=== PATIENT | male | born 1930 | race Caucasian/White ===

== ENCOUNTER 2019-06-17 08:30 | Emergency (ER) | payer MEDICARE ==
[~2019-06-17] VITALS: Ht 177.8 cm; Wt 68.0 kg
[~2019-06-17 08:30] MED LIST: ALPR.5 PO; Augmentin 875-1 EACH PO; BUPR150ER PO; BUPR150T2 PO; CALCAVITD PO; CEPH500 PO; GLUCHON PO; HYDACE5 PO; MULVITMINF PO; Norco 5-325 Ta1 EACH PO; ONDA4ODT MM; Percocet 5-3251 EACH PO; SERT50 PO; TAMS.4ER PO
[2019-06-17] MEDS ORDERED: HYDR1TAB94 PO (10:23)
== END 2019-06-17 11:11 | disposition home or self-care (01) ==
LOC: ER 08:30
DX: M54.2 Cervicalgia (principal); G89.29 Other chronic pain; Z79.899 Other long term (current) drug therapy
CPT/HCPCS: 72040; 96374; 99283-25; A9270-GY; J3010

== ENCOUNTER 2020-02-01 18:00 | Emergency (ER) | payer MEDICARE ==
[~2020-02-01] VITALS: Ht 177.8 cm; Wt 72.6 kg
[~2020-02-01 18:00] MED LIST changes: +HYDR1TAB94 PO
[2020-02-01 19:35] LABS: Calcium, Ionized (POC) 1.16 mmol/L (1.10-1.46); Chloride (POC) 109 mmol/L (98-108); Creatinine (POC) 1.1 mg/dL (0.8-1.3); Glucose (ISTAT POC) 103 mg/dL (70-99); Hemoglobin (POC) 14.3 g/dL (13.5-17.5); Potassium (POC) 4.4 mmol/L (3.5-5.5); Sodium (POC) 139 mmol/L (135-148); Total CO2 (POC) 19 mmol/L (21-32)
== END 2020-02-01 20:59 | disposition home or self-care (01) ==
LOC: ER 18:00
PROVIDERS: Emergency Medicine
DX: S01.111A Laceration without foreign body of right eyelid and periocular area, initial encounter (principal); E87.8 Other disorders of electrolyte and fluid balance, not elsewhere classified; Z79.899 Other long term (current) drug therapy; Z87.891 Personal history of nicotine dependence; W01.0XXA Fall on same level from slipping, tripping and stumbling without subsequent striking against object, initial encounter
CPT/HCPCS: 70450; 80047; 85014; 93005; 93010; 99284-25

== ENCOUNTER 2020-09-27 01:18 | Emergency (ER) | payer MEDICARE ==
[~2020-09-27] VITALS: Ht 177.8 cm; Wt 68.0 kg
[2020-09-27] MEDS ORDERED: CEPH500 PO (03:15)
== END 2020-09-27 03:41 | disposition home or self-care (01) ==
LOC: ER 01:18
DX: S01.01XA Laceration without foreign body of scalp, initial encounter (principal); Z79.899 Other long term (current) drug therapy; Z87.891 Personal history of nicotine dependence; W01.0XXA Fall on same level from slipping, tripping and stumbling without subsequent striking against object, initial encounter
CPT/HCPCS: 12002; 70450; 72125; 96374-59; 99284-25; J3010; L0160

== ENCOUNTER 2020-10-04 22:54 | Emergency (ER) | payer MEDICARE ==
[~2020-10-04] VITALS: Ht 175.3 cm; Wt 69.0 kg
== END 2020-10-05 01:54 | disposition home or self-care (01) ==
LOC: ER 22:54
DX: S12.110A Anterior displaced Type II dens fracture, initial encounter for closed fracture (principal); S01.01XA Laceration without foreign body of scalp, initial encounter; N40.0 Benign prostatic hyperplasia without lower urinary tract symptoms; Z91.81 History of falling; Z79.899 Other long term (current) drug therapy; Z87.891 Personal history of nicotine dependence; W06.XXXA Fall from bed, initial encounter
CPT/HCPCS: 12004; 70450; 72125; 99284-25

== ENCOUNTER 2021-02-07 13:06 | Emergency (ER) | payer MEDICARE ==
[~2021-02-07] VITALS: Ht 175.3 cm; Wt 68.0 kg
[2021-02-07 13:37] LABS: BASOPHILS ABSOLUTE AUTO 0.04 K/mm3 (0.00-0.23); BASOPHILS PERCENT AUTO 1 % (0-2); EOSINOPHILS ABSOLUTE AUTO 0.13 K/mm3 (0.00-0.68); EOSINOPHILS PERCENT AUTO 2 % (0-6); Hemoglobin 10.6 g/dL (13.5-17.5); IMMATURE GRAN ABSOLUTE AUTO 0.05 K/mm3 (0.00-0.10); IMMATURE GRAN PERCENT AUTO 1 % (0-1); LYMPHOCYTES ABSOLUTE AUTO 1.13 K/mm3 (0.84-5.20); LYMPHOCYTES PERCENT AUTO 14 % (21-46); MONOCYTES ABSOLUTE AUTO 0.81 K/mm3 (0.16-1.47); MONOCYTES PERCENT AUTO 10 % (4-13); Mean Corpuscular HGB Conc 33.1 g/dL (31.5-36.5); Mean Corpuscular Volume 85 fL (80-100); Mean Platelet Volume 9.2 fL (9.1-12.4); NEUTROPHILS PERCENT AUTO 73 % (41-73); Platelet Count 245 K/mm3 (150-400); RDW Standard Deviation 46.1 fL (35.1-46.3); Red Blood Cell Count 3.78 M/mm3 (4.30-5.90); White Blood Cell Count 8.06 K/mm3 (4.00-11.30)
[2021-02-07 13:57] LABS: Alanine Aminotransfer (ALT/SGP 16 U/L (12-78); Albumin, Blood 2.5 g/dL (3.4-5.0); Albumin/Globulin Ratio 0.6 (0.8-1.8); Alk Phos 137 U/L (50-136); Anion Gap 6 mmol/L (6-16); Aspartate Aminotrans (AST/SGOT 30 U/L (12-37); Bilirubin, Total 0.5 mg/dL (0.1-1.0); Blood Urea Nitrogen 21 mg/dL (8-24); Bun/Creatinine Ratio 23.8 (12.0-20.0); CO2, Blood 25 mmol/L (21-32); Calcium, Blood 8.2 mg/dL (8.5-10.1); Chloride, Blood 105 mmol/L (98-108); Creatinine, Blood 0.88 mg/dL (0.60-1.20); Globulin, Blood 3.9 g/dL (2.2-4.0); Glomerular Filtration Rate >60 (60-); Glucose, Blood 222 mg/dL (70-99); Potassium, Blood 4.5 mmol/L (3.5-5.5); Sodium, Blood 136 mmol/L (136-145); Total Protein, Blood 6.4 g/dL (6.4-8.2); Troponin I 0.035 ng/mL (0.000-0.040)
== END 2021-02-07 18:48 | disposition home or self-care (01) ==
LOC: ER 13:06
PROVIDERS: Emergency Medicine
DX: R07.89 Other chest pain (principal); Z79.899 Other long term (current) drug therapy; Z87.891 Personal history of nicotine dependence
CPT/HCPCS: 71045; 80053; 83880; 84484; 85025; 93005; 93010; 99285-25; A9270

== ENCOUNTER → 2021-02-25 | Outpatient (CLI) | payer MEDICARE ==
[~2021-02-25] MED LIST changes: +Acetaminophen325 M1 PO; +DOCU100 PO; +FINA5 PO; +FLUC100 PO; +LEVOFLOXACIN750 MG PO; +MIRALAX17 GM PO; +SENN187 PO; +SERT25 PO; +TAMSULOSIN HCL0.4 M1 PO; +VISBIOME 112.51 EACH PO; +Veetids 500500 MG PO
[2021-02-25 11:39] LABS: Appearance, Urine Cloudy (Clear); Bilirubin, Urine Neg (Neg); Blood, Urine 4+ (Neg); Color, Urine Yellow (P-Yellow); Glucose Qualitative, Urine Neg (Neg); Ketones, Urine Neg (Neg); Leukocyte Esterase, Urine 3+ (Neg); Nitrite, Urine Neg (Neg); Protein, Urine 2+ (Neg); Urobilinogen, Urine NORM (Normal)
[2021-02-25 11:52] LABS: White Blood Cells, Urine TNTC /hpf (0-5)
[2021-02-25 11:53] LABS: Bacteria Many /hpf; Squamous Epithelial Cells Not Seen /hpf (Few); Triple Phosphate Crystals Many /hpf
== END | disposition home or self-care (01) ==
LOC: LAB 09:00 → LAB SHORT 09:00
PROVIDERS: Legal Medicine
DX: N39.0 Urinary tract infection, site not specified (principal); N40.1 Benign prostatic hyperplasia with lower urinary tract symptoms; R32 Unspecified urinary incontinence; Z46.6 Encounter for fitting and adjustment of urinary device
CPT/HCPCS: 81001; 87070; 87077; 87086; 87186; 87205

== ENCOUNTER 2021-03-07 17:26 | Emergency (ER) | payer MEDICARE ==
[~2021-03-07] VITALS: Ht 172.7 cm; Wt 68.0 kg
[~2021-03-07 17:26] MED LIST changes: -Acetaminophen325 M1 PO; -DOCU100 PO; -FINA5 PO; -FLUC100 PO; -LEVOFLOXACIN750 MG PO; -MIRALAX17 GM PO; -SENN187 PO; -SERT25 PO; -TAMSULOSIN HCL0.4 M1 PO; -VISBIOME 112.51 EACH PO; -Veetids 500500 MG PO
[2021-03-07] MEDS ORDERED: Veetids 500500 MG PO (20:16)
[2021-03-07 20:30] LABS: Appearance, Urine Cloudy (Clear); Bilirubin, Urine Neg (Neg); Blood, Urine 5+ (Neg); Color, Urine Amber (P-Yellow); Glucose Qualitative, Urine Neg (Neg); Ketones, Urine Neg (Neg); Leukocyte Esterase, Urine 2+ (Neg); Nitrite, Urine Neg (Neg); Protein, Urine 3+ (Neg); Source, Urine Clean Catch; Urobilinogen, Urine NORM (Normal)
[2021-03-07 20:32] LABS: Bacteria Few /hpf; Red Blood Cells, Urine TNTC /hpf (0-2); Squamous Epithelial Cells Rare /hpf (Few); White Blood Cells, Urine 50-100 /hpf (0-5); Yeast/Fungi Urine Many /hpf
[2021-03-07] MEDS ORDERED: SERT25 PO (20:44)
== END 2021-03-07 20:58 | disposition home or self-care (01) ==
LOC: ER 17:26
PROVIDERS: Physician Assistant
DX: N39.0 Urinary tract infection, site not specified (principal); Z79.899 Other long term (current) drug therapy; Z87.891 Personal history of nicotine dependence
CPT/HCPCS: 51700; 51702; 81001; 87086; 87106; 99283-25; A9270

== ENCOUNTER 2021-03-15 18:12 | Emergency (ER) | payer MEDICARE ==
[~2021-03-15] VITALS: Ht 177.8 cm; Wt 68.0 kg
[~2021-03-15 18:12] MED LIST changes: +SERT25 PO; +Veetids 500500 MG PO
[2021-03-15 19:51] LABS: Source, Urine Catheter
[2021-03-15 19:55] LABS: Appearance, Urine Hazy (Clear); Bilirubin, Urine Neg (Neg); Blood, Urine 5+ (Neg); Color, Urine Yellow (P-Yellow); Glucose Qualitative, Urine Neg (Neg); Ketones, Urine Neg (Neg); Leukocyte Esterase, Urine 3+ (Neg); Nitrite, Urine Neg (Neg); Protein, Urine 4+ (Neg); Urobilinogen, Urine 1+ (Normal); pH, Urine 6.5 (5.0-8.0)
[2021-03-15 20:01] LABS: BASOPHILS ABSOLUTE AUTO 0.03 K/mm3 (0.00-0.23); BASOPHILS PERCENT AUTO 0 % (0-2); EOSINOPHILS ABSOLUTE AUTO 0.24 K/mm3 (0.00-0.68); EOSINOPHILS PERCENT AUTO 3 % (0-6); Hematocrit 36.3 % (37.0-53.0); Hemoglobin 11.6 g/dL (13.5-17.5); IMMATURE GRAN ABSOLUTE AUTO 0.04 K/mm3 (0.00-0.10); IMMATURE GRAN PERCENT AUTO 1 % (0-1); LYMPHOCYTES ABSOLUTE AUTO 1.16 K/mm3 (0.84-5.20); LYMPHOCYTES PERCENT AUTO 17 % (21-46); MONOCYTES ABSOLUTE AUTO 0.76 K/mm3 (0.16-1.47); MONOCYTES PERCENT AUTO 11 % (4-13); Mean Corpuscular HGB 27.8 pg (26.0-34.0); Mean Corpuscular Volume 87 fL (80-100); Mean Platelet Volume 8.6 fL (9.1-12.4); NEUTROPHILS ABSOLUTE AUTO 4.82 K/mm3 (1.96-9.15); NEUTROPHILS PERCENT AUTO 68 % (41-73); Platelet Count 257 K/mm3 (150-400); RDW Standard Deviation 53.9 fL (35.1-46.3); Red Blood Cell Count 4.18 M/mm3 (4.30-5.90); White Blood Cell Count 7.05 K/mm3 (4.00-11.30)
[2021-03-15 20:09] LABS: Bacteria Mod /hpf; Red Blood Cells, Urine TNTC /hpf (0-2); Squamous Epithelial Cells Few /hpf (Few); White Blood Cells, Urine 50-100 /hpf (0-5)
[2021-03-15 20:10] LABS: Alanine Aminotransfer (ALT/SGP 15 U/L (12-78); Albumin, Blood 2.8 g/dL (3.4-5.0); Albumin/Globulin Ratio 0.7 (0.8-1.8); Alk Phos 126 U/L (50-136); Anion Gap 7 mmol/L (6-16); Aspartate Aminotrans (AST/SGOT 19 U/L (12-37); Bilirubin, Total 0.4 mg/dL (0.1-1.0); Blood Urea Nitrogen 21 mg/dL (8-24); Bun/Creatinine Ratio 20.4 (12.0-20.0); CO2, Blood 24 mmol/L (21-32); Calcium, Blood 8.8 mg/dL (8.5-10.1); Chloride, Blood 106 mmol/L (98-108); Creatinine, Blood 1.03 mg/dL (0.60-1.20); Glomerular Filtration Rate >60 (60-); Glucose, Blood 128 mg/dL (70-99); Potassium, Blood 4.3 mmol/L (3.5-5.5); Sodium, Blood 137 mmol/L (136-145); Total Protein, Blood 6.8 g/dL (6.4-8.2)
[2021-03-15] MEDS ORDERED: LEVOFLOXACIN750 MG PO (20:42)
== END 2021-03-15 21:28 | disposition home or self-care (01) ==
LOC: ER 18:12
PROVIDERS: Physician Assistant; Student in an Organized Health Care Education/Training Program
DX: N39.0 Urinary tract infection, site not specified (principal); R31.9 Hematuria, unspecified; Z79.899 Other long term (current) drug therapy
CPT/HCPCS: 51702; 80053; 81001; 85025; 87086; 87106; 96365-59; 99283-25; J0696

== ENCOUNTER 2021-03-21 12:44 | Inpatient (IN) | payer MEDICARE ==
[~2021-03-21] VITALS: Ht 177.8 cm; Wt 56.3 kg
[~2021-03-21 12:44] MED LIST changes: +LEVOFLOXACIN750 MG PO
[2021-03-21 13:21] LABS: BASOPHILS ABSOLUTE AUTO 0.02 K/mm3 (0.00-0.23); BASOPHILS PERCENT AUTO 0 % (0-2); EOSINOPHILS ABSOLUTE AUTO 0.26 K/mm3 (0.00-0.68); EOSINOPHILS PERCENT AUTO 4 % (0-6); Hemoglobin 11.2 g/dL (13.5-17.5); IMMATURE GRAN ABSOLUTE AUTO 0.03 K/mm3 (0.00-0.10); IMMATURE GRAN PERCENT AUTO 0 % (0-1); LYMPHOCYTES ABSOLUTE AUTO 0.95 K/mm3 (0.84-5.20); LYMPHOCYTES PERCENT AUTO 13 % (21-46); MONOCYTES ABSOLUTE AUTO 0.94 K/mm3 (0.16-1.47); MONOCYTES PERCENT AUTO 13 % (4-13); Mean Corpuscular HGB 28.6 pg (26.0-34.0); Mean Corpuscular HGB Conc 32.9 g/dL (31.5-36.5); Mean Corpuscular Volume 87 fL (80-100); Mean Platelet Volume 8.5 fL (9.1-12.4); NEUTROPHILS ABSOLUTE AUTO 5.12 K/mm3 (1.96-9.15); NEUTROPHILS PERCENT AUTO 70 % (41-73); Platelet Count 230 K/mm3 (150-400); RDW Coefficient Variation 16.8 % (11.7-14.2); RDW Standard Deviation 53.2 fL (35.1-46.3); Red Blood Cell Count 3.91 M/mm3 (4.30-5.90); White Blood Cell Count 7.32 K/mm3 (4.00-11.30)
[2021-03-21 13:28] LABS: Albumin, Blood 2.9 g/dL (3.4-5.0); Albumin/Globulin Ratio 0.9 (0.8-1.8); Bilirubin, Total 0.5 mg/dL (0.1-1.0); Bun/Creatinine Ratio 15.9 (12.0-20.0); Calcium, Blood 8.4 mg/dL (8.5-10.1); Creatinine, Blood 1.26 mg/dL (0.60-1.20); Globulin, Blood 3.4 g/dL (2.2-4.0); Total Protein, Blood 6.3 g/dL (6.4-8.2)
[2021-03-21] MEDS ORDERED: FINA5 PO (15:42)
[2021-03-21] MEDS ORDERED: TAMSULOSIN HCL0.4 M1 PO (15:42)
[2021-03-21] MEDS ORDERED: BUPR150ER PO (15:43)
[2021-03-21 15:44] LABS: Source, Urine Catheter
[2021-03-21 15:50] LABS: Appearance, Urine Hazy (Clear); Bilirubin, Urine Neg (Neg); Blood, Urine 5+ (Neg); Color, Urine Yellow (P-Yellow); Glucose Qualitative, Urine Neg (Neg); Ketones, Urine Neg (Neg); Leukocyte Esterase, Urine 3+ (Neg); Nitrite, Urine Neg (Neg); Protein, Urine 3+ (Neg); Urobilinogen, Urine NORM (Normal)
[2021-03-21 16:21] LABS: Red Blood Cells, Urine 50-100 /hpf (0-2)
[2021-03-21 16:23] LABS: Bacteria Rare /hpf; Calcium Oxalate Crystals Few /hpf; Squamous Epithelial Cells Rare /hpf (Few)
[2021-03-22 05:29] LABS: BASOPHILS ABSOLUTE AUTO 0.02 K/mm3 (0.00-0.23); BASOPHILS PERCENT AUTO 0 % (0-2); EOSINOPHILS ABSOLUTE AUTO 0.21 K/mm3 (0.00-0.68); EOSINOPHILS PERCENT AUTO 3 % (0-6); Hematocrit 32.4 % (37.0-53.0); Hemoglobin 10.6 g/dL (13.5-17.5); IMMATURE GRAN ABSOLUTE AUTO 0.02 K/mm3 (0.00-0.10); IMMATURE GRAN PERCENT AUTO 0 % (0-1); LYMPHOCYTES ABSOLUTE AUTO 0.85 K/mm3 (0.84-5.20); LYMPHOCYTES PERCENT AUTO 13 % (21-46); MONOCYTES PERCENT AUTO 13 % (4-13); Mean Corpuscular HGB 28.2 pg (26.0-34.0); Mean Corpuscular HGB Conc 32.7 g/dL (31.5-36.5); Mean Corpuscular Volume 86 fL (80-100); Mean Platelet Volume 8.9 fL (9.1-12.4); NEUTROPHILS ABSOLUTE AUTO 4.42 K/mm3 (1.96-9.15); NEUTROPHILS PERCENT AUTO 70 % (41-73); Platelet Count 203 K/mm3 (150-400); RDW Coefficient Variation 16.7 % (11.7-14.2); RDW Standard Deviation 53.1 fL (35.1-46.3); Red Blood Cell Count 3.76 M/mm3 (4.30-5.90); White Blood Cell Count 6.32 K/mm3 (4.00-11.30)
[2021-03-22 06:11] LABS: Alanine Aminotransfer (ALT/SGP 16 U/L (12-78); Albumin, Blood 2.7 g/dL (3.4-5.0); Albumin/Globulin Ratio 0.8 (0.8-1.8); Alk Phos 111 U/L (50-136); Anion Gap 8 mmol/L (6-16); Aspartate Aminotrans (AST/SGOT 17 U/L (12-37); Bilirubin, Total 0.5 mg/dL (0.1-1.0); Blood Urea Nitrogen 16 mg/dL (8-24); Bun/Creatinine Ratio 15.1 (12.0-20.0); CO2, Blood 21 mmol/L (21-32); Calcium, Blood 8.1 mg/dL (8.5-10.1); Chloride, Blood 111 mmol/L (98-108); Creatinine, Blood 1.06 mg/dL (0.60-1.20); Globulin, Blood 3.3 g/dL (2.2-4.0); Glomerular Filtration Rate >60 (60-); Glucose, Blood 76 mg/dL (70-99); Potassium, Blood 3.6 mmol/L (3.5-5.5); Sodium, Blood 140 mmol/L (136-145)
--- NOTE | 2021-03-22 06:36 | NUR ---
SHIFT SUMMARY PATIENT ARRIVED TO ROOM 361 VIA STRETCHER. HE IS ALERT AND ORIENTED TO SELF. NO COMPLAINTS OF PAIN OR SHORTNESS OF BREATH. SLEPT WELL OVERNIGHT. NO ACUTE ISSUES NOTED. IV PATENT AND INFUSING. BED IN LOWEST POSITION WITH WHEELS LOCKED AND ALARM ON. CALL LIGHT WITHIN REACH. REPORT GIVEN TO ONCOMING RN.
--- NOTE | 2021-03-22 10:16 | NUR ---
PT SLEEPING, AROUSES TO SPEECH. ATTEMPTED TO AWAKEN TO GIVE MEDICATIONS; HE REFUSED, STATING "JUST LET ME GO. LET ME GO I AM." EXPLAINED TO PATIENT THAT HE NEEDED THE FEW MEDICATIONS HE WAS SEVERELY CONSTIPATED AND HAD A FUNGAL INFECTION. HE STATED AGAIN, "JUST LET ME GO." WILL CONTACT PALLIATIVE CARE.
--- NOTE | 2021-03-22 15:57 | NUR ---
Supportive Visit Spoke with Primary RN Yael and discussed case. Yael reports Pt will make statements such as let me go. When Pt is asked to elaborate Pt continues to state just let me go. Pt resting in bed with his eyes closed. Pt wakes to gentle verbal stimuli and gentle touch. Pt is pleasantly confused and A&OX2. Pt denies pain and dyspnea at this time. Pt reports being and lives with his 2 sons. Pt reports being in agreement with receiving treatment. Pt appears tired and this RN ended visit to allow Pt to rest. Spoke with Dr Kapoor and discussed case. Dr Kapoor reports no immediate concerns and considering D/C possibly as early as tomorrow. Palliative Care will remain available.
--- NOTE | 2021-03-22 16:54 | NUR ---
SHIFT SUMMARY: NO ACUTE EVENTS. PT SLEPT ALL MORNING, AROUSABLE TO SPEECH. AWOKE THIS AFTERNOON, A&O X 1, THINKS HE'S AT HOME, DIRECTABLE BUT FORGETS IMMEDIATELY. SPOKE TO PT'S SON AND BY PHONE, GAVE UPDATES ON POC. TAKES PILLS WHOLE IN APPLESAUCE WHEN AWAKE, DOES NOT DO WELL WITH STRAWS. WORKED WITH PT/OT; OCCUPATIONAL THERAPIST WOULD LIKE STRAP SETTER INVOLVED TO SEE IF FAMILY IS ABLE TO CARE FOR HIM AT HOME.
--- NOTE | 2021-03-22 19:01 | NUR ---
SHIFT SUMMARY: NO ACUTE CHANGES TO REPORT. PT ALERT; OCC CONFUSION; CALM AND COOPERATIVE WITH CARE. NO C/O PAIN. TELE IN PLACE; SR IN 70s. HAIRSTON IN PLACE; PATENT & DRAINING TO GRAVITY. ASPIRATION PRECAUTIONS; PO MEDS IN APPLESAUCE - NO STRAWS. HYDRATION CONTINUING. WCTM.
--- NOTE | 2021-03-23 06:07 | NUR ---
SHIFT SUMMARY PATIENT ALERT AND ORIENTED TO SELF ONLY. DID NOT SHOW ANY SIGNS OF BEING IN PAIN OR HAVING SHORTNESS OF BREATH. PATIENT SLEPT WELL OVERNIGHT. NO ACUTE ISSUES NOTED. IV PATENT AND FLUSHED. BED IN LOWEST POSITION WITH WHEELS LOCKED AND ALARM ON. CALL LIGHT WITHIN REACH. REPORT GIVEN TO ONCOMING RN.
[2021-03-23] MEDS ORDERED: Acetaminophen325 M1 PO (13:31)
[2021-03-23] MEDS ORDERED: DOCU100 PO (13:32)
[2021-03-23] MEDS ORDERED: FLUC100 PO (13:33)
[2021-03-23] MEDS ORDERED: MIRALAX17 GM PO (13:34)
[2021-03-23] MEDS ORDERED: SENN187 PO (13:34)
[2021-03-23] MEDS ORDERED: VISBIOME 112.51 EACH PO (13:35)
--- NOTE | 2021-03-23 16:58 | NUR ---
DISCHARGE SUMMARY PT LEFT WITH SON AND BY WC. PT'S SON DID MAX MARCELO TO STAND AND PIVOT PT, THIS IS THEIR HOME ROUTINE. PIV REMOVED, MEDS GONE OVER WITH SON, MEDS FAXED TO THEIR PHARMACY. PAPERWORK REVIEWED, [facility] OFFICE WILL CALL THEM TO SCHEDULE, THEY WILL CALL THEIR PCP TO SCHEDULE
== END 2021-03-23 15:42 | disposition home health service (06) | DRG 698 ==
LOC: ER 12:44 → MEDS 18:06 → ERHOLD 18:06 → MEDS 19:46 → ENPENDDIS 03-23 14:33 → MEDS 03-23 15:42
PROVIDERS: Emergency Medicine; Student in an Organized Health Care Education/Training Program; ADMIT Internal Medicine
DX: T83.511A Infection and inflammatory reaction due to indwelling urethral catheter, initial encounter (principal); G93.41 Metabolic encephalopathy; B37.49 Other urogenital candidiasis; R64 Cachexia; N17.9 Acute kidney failure, unspecified; N13.8 Other obstructive and reflux uropathy; E86.0 Dehydration; Z66 Do not resuscitate; F32.9 Major depressive disorder, single episode, unspecified; R31.9 Hematuria, unspecified; K59.00 Constipation, unspecified; N40.1 Benign prostatic hyperplasia with lower urinary tract symptoms; R33.8 Other retention of urine; F03.90 Unspecified dementia, unspecified severity, without behavioral disturbance, psychotic disturbance, mood disturbance, and anxiety; R45.1 Restlessness and agitation; S00.83XA Contusion of other part of head, initial encounter; W18.30XA Fall on same level, unspecified, initial encounter; Z87.891 Personal history of nicotine dependence; Z68.21 Body mass index [BMI] 21.0-21.9, adult; Z79.899 Other long term (current) drug therapy; Z91.81 History of falling; Z78.1 Physical restraint status; Y84.6 Urinary catheterization as the cause of abnormal reaction of the patient, or of later complication, without mention of misadventure at the time of the procedure
CPT/HCPCS: 36415; 51702; 70450; 71045; 74176; 80053; 81001; 82550; 83605; 83735; 85025; 87040; 87086; 93005; 93010; 96365-59; 97163; 97166; 97530; 97535; 99285-25; A9270; J0696; J1650; J7030